=== PATIENT | female | born 1985 | race Caucasian/White ===

== ENCOUNTER 2021-03-15 16:22 | Emergency (ER) | payer OTHER ==
[2021-03-15] MEDS ORDERED: Acetaminophen/HYDROcodone 325-10 MG Tab PO ONE ×2 (16:23→18:32)
[2021-03-15] MEDS ORDERED: Cyclobenzaprine 10 MG Tab PO ONE ×2 (16:23→18:32)
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
[2021-03-15] MEDS ORDERED: Sodium Chloride 0.9% 1,000 ML IV SCH (16:45)
[2021-03-15] MEDS ORDERED: Iopamidol 612 MG/ML 100 ML Bottle IVPUSH ONE (16:46)
[2021-03-15] MEDS ORDERED: Iopamidol 612 MG/ML 50 ML SDV IVPUSH ONE (16:47)
--- NOTE | 2021-03-15 17:32 | CT ---
PROCEDURE INFORMATION: Exam: CT Cervical Spine Without Contrast Exam date and time: 03/15/2021 4:49 PM Age: 35 years old Clinical indication: Other: Trauma, head, neck, chest, llq, lft hip pain TECHNIQUE: Imaging protocol: Computed tomography images of the cervical spine without contrast. Radiation optimization: All CT scans at this facility use at least one of these dose optimization techniques: automated exposure control; mA and/or kV adjustment per patient size (includes targeted exams where dose is matched to clinical indication); or iterative reconstruction. COMPARISON: No relevant prior studies available. FINDINGS: Bones/joints: No spondylolisthesis. The atlantooccipital and atlantoaxial articulations are intact. Occipital condyles are intact. Facet joint alignments are maintained. No acute fracture or traumatic subluxation. Discs/Spinal canal/Neural foramina: No significant disc protrusion. No severe spinal canal stenosis. No significant neural foraminal narrowing. Prevertebral Space: No prevertebral soft tissue swelling. Lymph nodes: Bilateral level IIa enlarged lymph nodes, measuring 1.6 cm on the right and 1.7 cm on the left, of uncertain etiology, but likely reactive. Lungs: Lung apices are normal. Soft tissues: Unremarkable. IMPRESSION: 1. No acute fracture or traumatic subluxation. 2. Bilateral level IIa enlarged lymph nodes, measuring 1.6 cm on the right and 1.7 cm on the left, of uncertain etiology, but likely reactive.
--- NOTE | 2021-03-15 17:34 | CT ---
PROCEDURE INFORMATION: Exam: CT Chest With Contrast; Diagnostic Exam date and time: 03/15/2021 4:49 PM Age: 35 years old Clinical indication: Other: Trauma, head, neck, chest, llq, lft hip pain TECHNIQUE: Imaging protocol: Diagnostic computed tomography of the chest with contrast. Total images: 341 Radiation optimization: All CT scans at this facility use at least one of these dose optimization techniques: automated exposure control; mA and/or kV adjustment per patient size (includes targeted exams where dose is matched to clinical indication); or iterative reconstruction. Contrast material: ISOVUE 300; Contrast volume: 125 ml; Contrast route: INTRAVENOUS (IV); COMPARISON: No relevant prior studies available. FINDINGS: Thyroid: The visualized thyroid gland is unremarkable. Lungs: No acute tracheobronchial abnormalities. No infiltrates or edema. No pulmonary contusion. No pulmonary mass lesions are identified. Pleural spaces: No pleural effusions. No pneumothorax. Heart: Heart size upper limits of normal. Mediastinal space: The esophagus is largely contracted without gross abnormality. Pulmonary arteries: The pulmonary arteries demonstrate no gross abnormality. 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 No mediastinal hematoma. Lymph nodes: No supraclavicular or axillary adenopathy. No mediastinal or hilar adenopathy. Bones/joints: No acute osseous abnormalities are identified. Soft tissues: Mild subcutaneous soft tissue swelling in the anterior left breast and to a lesser degree the anterior right breast suggesting local soft tissue contusion. No hematoma or foreign body. IMPRESSION: 1. No acute intrathoracic process is identified. 2. Mild soft tissue contusion in the anterior breast subcutaneous fat bilaterally, left greater than right. No hematoma or foreign body. PROCEDURE INFORMATION: Exam: CT Abdomen And Pelvis With Contrast Exam date and time: 03/15/2021 4:49 PM Age: 35 years old Clinical indication: Other: Trauma, head, neck, chest, llq, lft hip pain TECHNIQUE: Imaging protocol: Computed tomography of the abdomen and pelvis with contrast. Radiation optimization: All CT scans at this facility use at least one of these dose optimization techniques: automated exposure control; mA and/or kV adjustment per patient size (includes targeted exams where dose is matched to clinical indication); or iterative reconstruction. Contrast material: ISOVUE 300; Contrast volume: 125 ml; Contrast route: INTRAVENOUS (IV); COMPARISON: No relevant prior studies available. FINDINGS: Mediastinal space: The visualized distal esophagus is largely contracted without gross abnormality. Liver: Hepatomegaly measuring 24 cm craniocaudal. Normal contour. No mass lesions. No intrahepatic biliary ductal dilatation. Gallbladder and bile ducts: Normal. No calcified stones. No ductal dilation. Pancreas: Normal. No inflammatory changes or ductal dilation. Spleen: Normal. No splenomegaly. Adrenal glands: Normal. No adrenal mass. Kidneys and ureters: No acute abnormalities. No hydronephrosis or hydroureter. No urinary tract stones are identified. Stomach and bowel: The stomach is unremarkable. The small bowel is nondilated with no gross abnormality. No acute colonic abnormalities. Appendix: The appendix is normal in caliber and demonstrates no evidence of appendicitis. Intraperitoneal space: No free fluid or air. Vasculature: No acute process. No abdominal aortic aneurysm. Lymph nodes: No adenopathy. Urinary bladder: Unremarkable as visualized. Reproductive: Unremarkable as visualized. Bones/joints: No acute osseous abnormalities. Moderate disc degenerative changes L4-L5 and L5-S1. Soft tissues: Soft tissue contusion across the right mid abdominal anterior subcutaneous fat with no underlying hematoma or foreign body. IMPRESSION: 1. No acute intra-abdominal/intrapelvic injuries are identified. 2. Mild subcutaneous soft tissue contusion in the right anterior mid abdominal region with no underlying hematoma or foreign body. 3. Hepatomegaly. 4. Additional nonemergent findings detailed above.
--- NOTE | 2021-03-15 17:39 | CT ---
PROCEDURE INFORMATION: Exam: CT Head Without Contrast Exam date and time: 03/15/2021 4:49 PM Age: 35 years old Clinical indication: Other: Trauma, head, neck, chest, llq, lft hip pain TECHNIQUE: Imaging protocol: Computed tomography of the head without contrast. Radiation optimization: All CT scans at this facility use at least one of these dose optimization techniques: automated exposure control; mA and/or kV adjustment per patient size (includes targeted exams where dose is matched to clinical indication); or iterative reconstruction. COMPARISON: No relevant prior studies available. FINDINGS: Brain: No evidence for acute transcortical infarct. No mass effect or midline shift. No extra-axial collection. No acute intracranial hemorrhage. Basal cisterns are patent. Cerebral ventricles: No ventriculomegaly. Paranasal sinuses: Visualized sinuses are unremarkable. No fluid levels. Mastoid air cells: Visualized mastoid air cells are well aerated. Bones/joints: Unremarkable. No acute fracture. Soft tissues: Unremarkable. IMPRESSION: No acute intracranial hemorrhage or mass effect.
--- NOTE | 2021-03-15 17:47 | CR ---
PROCEDURE INFORMATION: Exam: XR Left Humerus Exam date and time: 03/15/2021 5:30 PM Age: 35 years old Clinical indication: Other: Trauma, left upper arm and forearm pain TECHNIQUE: Imaging protocol: XR Left humerus. Views: 2 or more views. COMPARISON: CT Chest Abdomen Pelvis w Cont 03/15/2021 4:49 PM FINDINGS: Bones/joints: Normal. Soft tissues: Normal. IMPRESSION: No acute findings.
--- NOTE | 2021-03-15 17:50 | CR ---
PROCEDURE INFORMATION: Exam: XR Left Forearm Exam date and time: 03/15/2021 5:31 PM Age: 35 years old Clinical indication: Other: Trauma, left upper arm and forearm pain TECHNIQUE: Imaging protocol: XR Left forearm. Views: 2 views. COMPARISON: No relevant prior studies available. FINDINGS: Bones/joints: Normal. Soft tissues: Normal. IMPRESSION: No acute findings.
[2021-03-15 17:57] LABS: ANION GAP 16.8 mEq/L (7-13); CHLORIDE,CL 102 mmol/L (98-107); SODIUM,NA 137 mmol/L (136-145)
[2021-03-15 18:01] LABS: PTT,PARTIAL THROMBOPLSTIN TIME 23.3 SEC (22.0-34.0)
[2021-03-15] MEDS ORDERED: Ondansetron 4 MG Tab.DIS PO ONE (18:32)
[2021-03-15 18:48] LABS: AMPHETAMINES,URINE NEGATIVE (NEGATIVE); BARBITURATES,URINE NEGATIVE (NEGATIVE); BENZODIAZEPINE,URINE NEGATIVE (NEGATIVE); MDMA (ECSTASY), URINE NEGATIVE (NEGATIVE); METHADONE,URINE NEGATIVE (NEGATIVE); METHAMPHETAMINES,URINE NEGATIVE (NEGATIVE); OPIATES,URINE NEGATIVE (NEGATIVE); OXYCODONE,URINE NEGATIVE (NEGATIVE); PHENCYCLIDINE,URINE NEGATIVE (NEGATIVE); TCA,URINE NEGATIVE (NEGATIVE)
[2021-03-15] MEDS ORDERED: Cyclobenzaprine 10 MG Tab ONE (18:49)
[2021-03-15] MEDS ORDERED: Acetaminophen/HYDROcodone 325-10 MG Tab ONE (18:49)
== END 2021-03-15 19:45 | disposition home or self-care (01) ==
LOC: DL.ED 16:22
DX: S20.02XA Contusion of left breast, initial encounter (principal); S20.01XA Contusion of right breast, initial encounter; S30.1XXA Contusion of abdominal wall, initial encounter; E66.9 Obesity, unspecified; Z68.43 Body mass index [BMI] 50.0-59.9, adult; V48.5XXA Car driver injured in noncollision transport accident in traffic accident, initial encounter; R59.0 Localized enlarged lymph nodes
CPT/HCPCS: 36415; 70450; 71260; 72125; 73060; 73090; 74177; 80053; 80305; 80307; 81001; 81025; 82150; 83690; 85025; 85610; 85730; 86850; 86900; 86901; 99285; A9270; Q9967